=== PATIENT | female | born 1990 | race Caucasian/White ===

== ENCOUNTER 2019-06-16 08:52 | Emergency (ER) | payer SELFPAY ==
--- NOTE | 2019-06-16 09:19 | ER Document Report ---
ED Medical Screen (RME) - General Chief Complaint: Pain With Urination Stated Complaint: UTI SYMPTOMS Time Seen by Provider: 06/16/19 09:14 Mode of Arrival: Ambulatory Information source: Patient Notes: Patient is a 29-year-old female presented to the emergency department with 2-day history of dysuria, lower abdominal cramping, fevers and what she describes as abnormal vaginal discharge. Patient denies any back pain. Exam: No CVA tenderness bilaterally. I have greeted and performed a rapid initial assessment of this patient. A comprehensive ED assessment and evaluation of the patient, analysis of test results and completion of the medical decision making process will be conducted by additional ED providers. I have specifically instructed the patient or family members with the patient to immediately return to any nursing staff should anything change in the patient's condition or with their chief complaint. This medical record was dictated with voice recognizing software. There may be grammatical, syntax errors that are unintended. TRAVEL OUTSIDE OF THE [place] IN LAST 30 DAYS: No - Related Data Allergies/Adverse Reactions: No Known Allergies Allergy (Verified 06/16/19 08:53) Physical Exam - Vital signs Vitals: Temp Pulse Resp BP Pulse Ox 98 F 78 16 140/88 H 99 06/16/19 08:57 06/16/19 08:57 06/16/19 08:57 06/16/19 08:57 06/16/19 08:57 Course - Vital Signs Vital signs: Temp Pulse Resp BP Pulse Ox 98 F 78 16 140/88 H 99 06/16/19 08:57 06/16/19 08:57 06/16/19 08:57 06/16/19 08:57 06/16/19 08:57
[2019-06-16 09:49] LABS: APPEARANCE,URINE SLIGHTLY-CLOUDY; BILIRUBIN,URINE NEGATIVE (NEGATIVE); COLOR,URINE YELLOW; GLUCOSE, URINE NEGATIVE (NEGATIVE); KETONES,URINE NEGATIVE (NEGATIVE); LEUKOCYTE ESTERASE,URINE MODERATE (NEGATIVE); NITRITE,URINE NEGATIVE (NEGATIVE); PROTEIN,URINE NEGATIVE (NEGATIVE); URINE SPECIFIC GRAVITY 1.014; UROBILINOGEN,URINE NEGATIVE mg/dL (<2.0)
[2019-06-16 09:51] LABS: ABSOLUTE EOSINOPHILS # (AUTO) 0.1 10^3/uL (0.0-0.6); ABSOLUTE LYMPHOCYTES (AUTO) 0.8 10^3/uL (0.5-4.7); ABSOLUTE MONOCYTES (AUTO) 0.4 10^3/uL (0.1-1.4); ABSOLUTE NEUT (AUTO) 3.9 10^3/uL (1.7-8.2); BASOPHILS % (AUTO) 0.7 % (0-2); EOSINOPHILS % (AUTO) 2.2 % (0-6); HEMATOCRIT 33.9 % (36.0-47.0); HEMOGLOBIN 11.8 g/dL (12.0-15.5); LYMPHOCYTES % (AUTO) 14.6 % (13-45); MEAN CORPUSCULAR HEMOGLOBIN 35.7 pg (27.0-33.4); MEAN CORPUSCULAR HGB CONC 34.7 g/dL (32.0-36.0); MEAN CORPUSCULAR VOLUME 103 fl (80-97); PLATELET COUNT 241 10^3/uL (150-450); RED CELL DISTRIBUTION WIDTH 17.9 % (11.5-14.0); SEGMENTED NEUTROPHILS % (AUTO) 75.5 % (42-78); TOTAL CELLS COUNTED % (AUTO) 100 %; WHITE BLOOD COUNT 5.1 10^3/uL (4.0-10.5)
[2019-06-16 09:52] LABS: ADD MANUAL MICROSCOPIC YES
[2019-06-16 09:57] LABS: BACTERIA,URINE 2+ /HPF
[2019-06-16 10:04] LABS: ALANINE AMINOTRANSFERASE 14 U/L (9-52); ALBUMIN 4.1 g/dL (3.5-5.0); ALKALINE PHOSPHATASE 61 U/L (38-126); ANION GAP 11 (5-19); ASPARTATE AMINO TRANSFERASE 25 U/L (14-36); BILIRUBIN,DIRECT 0.3 mg/dL (0.0-0.4); BILIRUBIN,TOTAL 0.6 mg/dL (0.2-1.3); BLOOD UREA NITROGEN 7 mg/dL (7-20); CALCIUM 9.1 mg/dL (8.4-10.2); CARBON DIOXIDE 26 mmol/L (22-30); CHLORIDE 103 mmol/L (98-107); GLUCOSE 112 mg/dL (75-110); POTASSIUM 3.1 mmol/L (3.6-5.0); SODIUM 139.8 mmol/L (137-145); TOTAL PROTEIN 6.8 g/dL (6.3-8.2)
--- NOTE | 2019-06-16 10:14 | ER Document Report ---
ED GI/ - General Chief Complaint: Pain With Urination Stated Complaint: UTI SYMPTOMS Time Seen by Provider: 06/16/19 09:14 Mode of Arrival: Ambulatory Notes: 29-year-old female to the emergency department chief complaint of dysuria. Mild vaginal discharge. Intermittent fevers at home. No other major symptoms. No vomiting. No rash. No flank pain. TRAVEL OUTSIDE OF THE [place] IN LAST 30 DAYS: No - HPI Patient complains to provider of: Dysuria - Related Data Allergies/Adverse Reactions: No Known Allergies Allergy (Verified 06/16/19 08:53) Past Medical History - General Information source: Patient Last Menstrual Period: unknown patient on depo. - Social History Smoking Status: Current Every Day Smoker Cigarette use (# per day): Yes Frequency of alcohol use: Heavy Drug Abuse: None Lives with: Family Family History: Reviewed & Not Pertinent Patient has suicidal ideation: No Patient has homicidal ideation: No - Medical History Medical History: Negative Renal/ Medical History: Denies: Hx Peritoneal Dialysis Past Surgical History: Reports: Hx Appendectomy Review of Systems - Review of Systems Notes: Constitutional: denies: Chills, Diaphoresis, Fever, Malaise, Weakness EENT: denies: Eye discharge, Blurred vision, Tearing, Double vision, Nose congestion, Nose discharge, Throat swelling, Mouth pain Cardiovascular: denies: Palpitations, Heart racing, Orthopnea, Dyspnea, Chest pain Respiratory: denies: Cough, Hurts to breathe, Wheezing, Shortness of breath Gastrointestinal: denies: Abdominal pain, Diarrhea, Nausea, Vomiting, Black stools, bright red blood in stool Genitourinary: +Burning,+ Dysuria, +Discharge, +Frequency, -Flank pain, - Hematuria Musculoskeletal: denies: Joint pain, Joint swelling, Muscle pain, Muscle stiffness, back pain Hematologic/Lymphatic: denies: Anemia, Easy bleeding, Easy bruising, Blood clots Neurological/Psychological: denies: Confusion, Dementia, Depression, Loss of consciousness Skin: No lesions, no masses, no skin breakdown, no abscesses Physical Exam - Vital signs Vitals: Temp Pulse Resp BP Pulse Ox 98 F 78 16 140/88 H 99 06/16/19 08:57 06/16/19 08:57 06/16/19 08:57 06/16/19 08:57 06/16/19 08:57 Interpretation: Normal - General General appearance: Appears well, Alert - HEENT Head: Normocephalic, Atraumatic Eyes: Normal Pupils: PERRL - Respiratory Respiratory status: No respiratory distress Chest status: Nontender Breath sounds: Normal Chest palpation: Normal - Cardiovascular Rhythm: Regular Heart sounds: Normal auscultation Murmur: No - Abdominal Inspection: Normal Distension: No distension Bowel sounds: Normal Tenderness: Nontender Organomegaly: No organomegaly - Genitourinary External exam: Normal Speculum exam: Normal Vaginal bleeding: None Bimanuel exam: Normal - Back Back: Normal, Nontender - Extremities General upper extremity: Normal inspection, Nontender, Normal color, Normal ROM, Normal temperature General lower extremity: Normal inspection, Nontender, Normal color, Normal ROM, Normal temperature, Normal weight bearing. No: Oxana's sign - Neurological Neuro grossly intact: Yes Cognition: Normal Orientation: AAOx4 [place] Coma Scale Eye Opening: Spontaneous [place] Coma Scale Verbal: Oriented [place] Coma Scale Motor: Obeys Commands [place] Coma Scale Total: 15 Speech: Normal Motor strength normal: LUE, RUE, LLE, RLE Sensory: Normal - Psychological Associated symptoms: Normal affect, Normal mood - Skin Skin Temperature: Warm Skin Moisture: Dry Skin Color: Normal Course - Re-evaluation Re-evalutation: 06/16/19 11:30 Laboratory 06/16/19 06/16/19 06/16/19 09:20 09:20 09:20 WBC 5.1 RBC 3.30 L Hgb 11.8 L Hct 33.9 L MCV 103 H MCH 35.7 H MCHC 34.7 RDW 17.9 H Plt Count 241 Seg Neutrophils % 75.5 Lymphocytes % 14.6 Monocytes % 7.0 Eosinophils % 2.2 Basophils % 0.7 Absolute Neutrophils 3.9 Absolute Lymphocytes 0.8 Absolute Monocytes 0.4 Absolute Eosinophils 0.1 Absolute Basophils 0.0 Sodium 139.8 Potassium 3.1 L Chloride 103 Carbon Dioxide 26 Anion Gap 11 BUN 7 Creatinine 0.49 L Est GFR ( Amer) > 60 Est GFR (Non-Af Amer) > 60 Glucose 112 H Calcium 9.1 Total Bilirubin 0.6 Direct Bilirubin 0.3 Neonat Total Bilirubin Not Reportable Neonat Direct Bilirubin Not Reportable Neonat Indirect Bili Not Reportable AST 25 ALT 14 Alkaline Phosphatase 61 Total Protein 6.8 Albumin 4.1 Serum HCG, Qual NEGATIVE Urine Color Urine Appearance Urine pH Ur Specific [place] Urine Protein Urine Glucose (UA) Urine Ketones Urine Blood Urine Nitrite Urine Bilirubin Urine Urobilinogen Ur Leukocyte Esterase Urine WBC Ur Squamous Epith Cells Urine Bacteria Urine Mucus Urine Ascorbic Acid Trichomonas (Wet Prep) Vaginal WBC Vaginal RBC Vaginal Yeast 06/16/19 06/16/19 09:20 11:00 WBC RBC Hgb Hct MCV MCH MCHC RDW Plt Count Seg Neutrophils % Lymphocytes % Monocytes % Eosinophils % Basophils % Absolute Neutrophils Absolute Lymphocytes Absolute Monocytes Absolute Eosinophils Absolute Basophils Sodium Potassium Chloride Carbon Dioxide Anion Gap BUN Creatinine Est GFR ( Amer) Est GFR (Non-Af Amer) Glucose Calcium Total Bilirubin Direct Bilirubin Neonat Total Bilirubin Neonat Direct Bilirubin Neonat Indirect Bili AST ALT Alkaline Phosphatase Total Protein Albumin Serum HCG, Qual Urine Color YELLOW Urine Appearance SLIGHTLY-CLOUDY Urine pH 6.0 Ur Specific [place] 1.014 Urine Protein NEGATIVE Urine Glucose (UA) NEGATIVE Urine Ketones NEGATIVE Urine Blood MODERATE H Urine Nitrite NEGATIVE Urine Bilirubin NEGATIVE Urine Urobilinogen NEGATIVE Ur Leukocyte Esterase MODERATE H Urine WBC 5-10 Ur Squamous Epith Cells FEW Urine Bacteria 2+ Urine Mucus 2+ Urine Ascorbic Acid NEGATIVE Trichomonas (Wet Prep) NO TRICHOMONAS SEEN Vaginal WBC 1+ WBCS SEEN Vaginal RBC FEW RBCS SEEN Vaginal Yeast YEAST SEEN - Vital Signs Vital signs: Temp Pulse Resp BP Pulse Ox 98 F 78 16 140/88 H 99 06/16/19 08:57 06/16/19 08:57 06/16/19 08:57 06/16/19 08:57 06/16/19 08:57 - Laboratory Result Diagrams: 06/16/19 09:20 06/16/19 09:20 Laboratory results interpreted by me: 06/16/19 06/16/19 06/16/19 09:20 09:20 09:20 RBC 3.30 L Hgb 11.8 L Hct 33.9 L MCV 103 H MCH 35.7 H RDW 17.9 H Potassium 3.1 L Creatinine 0.49 L Glucose 112 H Urine Blood MODERATE H Ur Leukocyte Esterase MODERATE H Discharge - Discharge Clinical Impression: Urinary tract infection Qualifiers: Urinary tract infection type: acute cystitis Hematuria presence: without hematuria Qualified Code(s): N30.00 - Acute cystitis without hematuria Condition: Good Disposition: HOME, SELF-CARE Instructions: Trimethoprim-Sulfa ([facility]), Urinary Tract Infection ([facility]) Additional Instructions: In the event in any of the lab tests come back abnormal we will notify you. If symptoms are getting worse please return. Please follow-up with your primary care doctor. Prescriptions: Phenazopyridine HCl [Pyridium 100 Mg Tablet] 100 mg PO TID 2 Days #6 tablet Sulfamethoxazole/Trimethoprim [Bactrim Ds Tablet] 1 each PO BID 5 Days #10 tablet
[2019-06-16 11:12] LABS: T.VAGINALIS (WET MOUNT) NO TRICHOMONAS SEEN; YEAST (WET MOUNT) YEAST SEEN
[2019-06-16 11:13] LABS: RBCS (WET MOUNT) FEW RBCS SEEN; WBCS (WET MOUNT) 1+ WBCS SEEN
[2019-06-16] MEDS ORDERED: SULFAMETHOXAZOLE/TRIMETHOPRIM 800-160 MG TABLET PO ONE (11:33)
[2019-06-16] MEDS ORDERED: IBUPROFEN 600 MG TABLET PO ONE (11:33)
[2019-06-16 11:51] VITALS: BP 132/90
[2019-06-16 12:45] LABS: CHLAM PCR NOT DETECTED (NOT DETECT)
== END 2019-06-16 11:53 | disposition home or self-care (01) ==
LOC: ER 08:52
DX: N30.00 Acute cystitis without hematuria (principal); A54.9 Gonococcal infection, unspecified; N89.8 Other specified noninflammatory disorders of vagina; F17.210 Nicotine dependence, cigarettes, uncomplicated
CPT/HCPCS: 36415; 80053; 81001; 84703; 85025; 87086; 87088; 87186; 87210; 87491; 87591; 99283